=== PATIENT | male | born 1955 | race Caucasian/White ===

== ENCOUNTER 2019-06-13 15:08 | Emergency (ER) | payer MEDICAID, SELFPAY ==
[2019-06-13 15:09] VITALS: BP 204/126; PULSE 100; RESP 16; TEMP 36.7; O2SAT 96; BMI 24.4
--- NOTE | 2019-06-13 16:01 | EKG12_ITS ---
Test Reason : ABNL PAIN Blood Pressure : / mmHG Vent. Rate : 071 BPM Atrial Rate : 071 BPM P-R Int : 156 ms QRS Dur : 092 ms QT Int : 390 ms P-R-T Axes : 072 -41 032 degrees QTc Int : 423 ms Normal sinus rhythm Left axis deviation Abnormal ECG Confirmed by CHAYA AGUILAR, AVELINO ([id number]), purchasing expeditor SUDHA FERNANDEZ ([id number]) on 06/16/2019 10:55:37 AM Referred By: MARIAH Confirmed By:NURA LARKIN MD
--- NOTE | 2019-06-13 16:02 | ED.DCSUM_ITS ---
- ER Visit Summary Date of Service: 06/13/19 Chief Complaint: Abdominal pain, vision loss History of Present Illness: The patient is a 63 M who complains of upper abdominal pain and progressive vision loss over the past couple of months. His pain is in the upper part of his abdomen and radiates up into his chest. He has not had a fever. No nausea vomiting or diarrhea. He has been trying ibuprofen and CBD oil which does help with his pain. He states that his vision loss is been progressive over the past several months. It is in both eyes. He denies any pain with this. He believes it may be from diabetes. He has had a follow- up appointment scheduled with [facility] and his primary care doctor this month Physical Examination: Vital signs reviewed. HEENT exam unremarkable. Heart is regular rate and rhythm without murmurs. Lungs are clear to auscultation. Ab domen is soft with mild epigastric tenderness. No guarding or rebound tenderness. Extremities reveal no edema. Peripheral pulses are equal. Skin exam normal. Neurologic exam normal. Test Results: EKG was sinus rhythm with no ischemic changes. Laboratory studies normal except for sodium of 132 and glucose of 414 Emergency Department Course and Treatment: Patient states that he took himself off of all of his medications. This would explain his hyperglycemia and hypertension. He is not sure what diabetes medications he was taking. I will start him on metformin for his diabetes. I will give him Toradol for his pain. He does have follow-up appointments with ophthalmology and a primary care physician. They can reevaluate his blood sugar and his vision at that time. Treatment Plan: [] Disposition: Discharge Impression: Hyperglycemia, abdominal pain This note was generated with [employer] dictation software. It may contain incorrect words, spelling, and punctuation that were not noted in review of the chart prior to signing ED Disposition - Plan for ED Patient: Referrals: Damari Mendenhall NP-C [Primary Care Provider] -
[2019-06-13 16:38] VITALS: BP 207/119; PULSE 71; RESP 17; O2SAT 97
[2019-06-13 16:51] LABS: Absolute Lymphocyte Count 2.07 X10^3/uL (0.83-4.51); Absolute Neutrophil Count 4.3 X10^3/uL (2.0-7.7); Basophil# 0.09 X10^3/uL; Basophil% 1.2 % (0-1); Hematocrit 45.2 % (40-54); Hemoglobin 15.9 g/dL (13.0-16.5); Lymphocyte # 2.07 X10^3/ul (4.0); Lymphocyte % 27.8 % (19-41); Mean Corp Hgb Conc 35.2 g/dL (32-36); Mean Corpuscular Hgb 30.2 pg (27.0-32.0); Mean Corpuscular Volume 85.9 fL (80-94); Mean Platelet Vol. 10.9 fl (6.2-12.0); Monocyte# 0.64 X10^3/uL; Monocyte% 8.6 % (0-10); NRBC Flagged by Analyzer 0 % (0-5); Neutrophil # 4.32 X10^3/uL (2.7-7.7); Platelet Count 244 K/mm3 (150-450); RBC Distribution Width CV 11.8 % (11.6-14.6); RBC Distribution Width SD 36.4 fl (35.1-43.9); Red Blood Count 5.26 M/mm3 (4.6-6.2); White Blood Count 7.5 K/mm3 (4.4-11.0)
[2019-06-13 17:09] LABS: AST(SGOT) 7 U/L (15-37); Alanine Aminotransfer ALT/SGPT 21 U/L (16-61); Alkaline Phosphatase 67 U/L (45-117); Bilirubin, Direct 0.22 mg/dL (0.00-0.30); Globulin 3.4 g/dL (2.2-4.2); Protein, Total 7.4 g/dL (6.4-8.2)
[2019-06-13 17:17] LABS: Anion Gap 6 (5-15); BUN 11 mg/dL (7-18); BUN/Creat Ratio 12.4 RATIO (10-20); Calcium,Total 9.2 mg/dL (8.5-10.1); Chloride 99 mmol/L (98-107); Creatinine, Serum 0.89 mg/dL (0.70-1.30); EST Glomerular Filtration Rate 92 mL/min (>60); Est Glom Filt Rate - Afr Amer 111 mL/min (>60); Estimated Creatinine Clearance 83.85 ml/min; Glucose 414 mg/dL (74-106); Lipase 58 U/L (73-393); Potassium 4.1 mmol/L (3.5-5.1); Sodium Level 132 mmol/L (136-145)
--- NOTE | 2019-06-13 17:32 | ED.DEP ---
ED Disposition - Plan for ED Patient: Disposition: Home or Assisted Living Instructions: HYPERGLYCEMIA, NEW ONSET (Diabetes Suspected) Prescriptions: Metformin HCl [Metformin HCl ER] 500 mg PO BID #60 tab.er.24h Transmission Status: Pending to [id number] Referrals: Damari Mendenhall, PEST CONTROL SERVICE TECHNICIAN-C [Primary Care Provider] - Additional Instructions: Your prescription was electronically transmitted to the [facility] in [place]
[2019-06-13] MEDS: metFORMIN HCl 500 MG Tablet PO (17:51)
[2019-06-13] MEDS: Ketorolac 30 MG/ML Syringe IV (17:51)
[2019-06-13 18:06] VITALS: BP 195/117; PULSE 76; RESP 17; O2SAT 96
== END 2019-06-13 18:09 | disposition home or self-care (01) ==
PROVIDERS: Emergency Provider Emergency Medicine; PCP Nurse Practitioner Family
DX: E11.65 Type 2 diabetes mellitus with hyperglycemia (principal); R10.10 Upper abdominal pain, unspecified
CPT/HCPCS: 80048; 80076; 83690; 84484; 85025; 93005; 96374; 99284

== ENCOUNTER → 2024-12-04 | Outpatient (CLI) | payer MEDICARE, SELFPAY ==
--- NOTE | 2024-12-04 12:08 | MRI_ITS ---
PROCEDURE: MRI ABD WITH AND W/O CONTRAST 12/04/2024 REASON FOR EXAM: LIVER CYST Diabetes, cholecystectomy TECHNIQUE: MRI ABD WITH AND W/O CONTRAST Multiplanar and multisequence images were obtained. CONTRAST: Clariscan VOLUME: 17 mL COMPARISON: None at this facility. FINDINGS: Liver: The liver is non cirrhotic and there is no mass seen. In particular, no cyst is identified at this time. No evidence of diffuse iron or fat deposition. Biliary: Gallbladder is surgically absent. No biliary duct dilation is present. Pancreas: The pancreatic head and uncinate process appear normal. Beginning at the level of the pancreatic neck and extending into the distal tail there is glandular atrophy and ductal dilation. Some artifact is seen immediately anterior to the pancreatic head related to redundant portions of the overlying distal stomach. No definite mass is seen. However, a mass can not be excluded. Spleen: Normal Adrenals: Normal Kidneys: Normal. No collecting system dilation or solid mass seen. Peritoneum / Retroperitoneum: No free air, free fluid or other mass. Some paramagnetic effect is seen adjacent to the gastric fundus. Another focus of artifact is seen near the vicinity of the 3rd duodenum and anterior to the aorta. Lymph Nodes: None appear enlarged. Major Vessels: Normal caliber Bones: Unremarkable MRI/MRI Abd WITH and W/O Contrast IMPRESSION: 1. Liver is unremarkable. No cyst is present. 2. Cholecystectomy. No biliary ductal dilation. 3. Atrophy of the pancreatic neck, body and tail with dilation of the duct. N o definite mass seen. Differential includes stricture versus mass. Recommend comparison to outside imaging if available. Otherwise endoscopic ultrasound to evaluate this region would be suggested. Additionally, correlate with laboratory values. Reading Location: [id number]
== END | disposition home or self-care (01) ==
PROVIDERS: PCP Nurse Practitioner Family; Referring Provider Student in an Organized Health Care Education/Training Program; Visit Provider Student in an Organized Health Care Education/Training Program
DX: K76.89 Other specified diseases of liver (principal)
CPT/HCPCS: 74183; A9575; A4216

== ENCOUNTER 2024-12-16 13:05 | Day surgery (SDC) | payer MEDICARE, MEDICAID, SELFPAY ==
[2024-12-16] VITALS (8 sets, daily range): BP systolic 122–156; BP diastolic 75–116; PULSE 68–77; RESP 16–18; TEMP 36.1–36.6; O2SAT 98–100; BMI 28.0
--- NOTE | 2024-12-16 13:32 | PCM.HP.STD ---
HPI - General General Date of Admission: 12/16/24 Date of Service: 12/16/24 Chief Complaint: Abnormal imaging HPI Narrative MADI COON, is a 69 M who presents for evaluation of abdominal pain and abnormal CT scan abdomen pelvis. Referred to [facility] from PCP for findings on CT abd/pelvis. Pt endorses 1-2 days of severe nausea and vomiting which resolved without intervention. He believes he likely had a viral illness. He has a PMHx of choledocholithiasis, cholecystitis s/p cholecystectomy and chronic pancreatitis. Pt denies any current GI symptoms including constipation, diarrhea, abd pain, n/v or heartburn. He has never had an EGD but does note having a colonoscopy about 5 years ago. He endorses a hx of alcohol use in the past but has not drank on a regular basis in a few years. CT abd/pelvis; mildly distended fluid filled stomach. mucosal thickening at the gastric antrum and duodenum suggestive of gastritis/duodenitis. Underfilling vs mucosal thickening of the colon. liver with 1.9 centimeter hypoattenuating focus at the periphery of the right hepatic lobe of questionable etiology. [facility] Medical History Wears glasses Heartburn Gastric reflux Non-smoker Home Medications ?Medication ?Instructions ?Recorded ?Last Taken ?Type empagliflozin 25 mg tablet 25 mg PO QDAY 10/30/24 Unknown History (Jardiance) glimepiride 4 mg tablet 8 mg PO QAM 10/30/24 Unknown History lisinopril 10 mg tablet 10 mg PO QDAY blood pressure 10/30/24 Unknown History metoprolol succinate 25 mg 25 mg PO QDAY 10/30/24 Unknown History tablet,extended release 24 hr pantoprazole 20 mg tablet,delayed 20 mg PO QDAY 10/30/24 Unknown History release acetaminophen 500 mg capsule 500 mg PO TID 12/11/24 Unknown History aspirin 81 mg tablet 81 mg PO DAILY 12/11/24 Unknown History pioglitazone 15 mg tablet 15 mg PO DAILY 12/11/24 Unknown History Allergy/AdvReac Type Severity Reaction Status Date / Time Environmental Allergies: Allergy Intermediate SNEEZING Verified 12/16/24 13:23 Uncoded (hayfever) Surgical History Hx of cataract surgery Hx of cholecystectomy Hx of colonoscopy Social History Smoking Status: Never smoker ROS Constitutional Constitutional: Denies fatigue, fever(s), poor appetite, weight gain or weight loss Gastrointestinal Gastrointestinal: Denies belching, bloating, change in bowel habits, change in stool character, chewing difficulty, coffee ground emesis, constipation, cramping, diarrhea, dyspepsia, dysphagia, early satiety, excessive flatus, fecal incontinence, heartburn, hematemesis, hematochezia, hemorrhoids, loose stools, melena, nausea, odynophagia, rectal bleeding, tenesmus, vomiting or weight changes Physical Exam Const alert, oriented x3, no apparent distress and healthy appearing General Appearance: cooperative GI normal to inspection, nondistended, normoactive bowel sounds, soft to palpation, non-tender and non-distended Percussion: normal to percussion Rectal Exam: deferred Assessment & Plan Assessment/Plan (1) Gastric wall thickening: (2) Chronic pancreatitis: PLAN: Assessment and Plan Assessment and Plan (1) Liver cyst: Status: Acute Plan: Madi is a 69 yo male pt here today for evaluation after referral from PCP. Pt had a recent CT showing gastric wall thickening, liver cyst and chronic pancreatitis. He endorses recently having 1-2 days of profuse n/v which resolved without intervention. Pt has a PMHx pertinent for cholecystitis and choledocholithiasis s/p cholecystectomy and chronic pancreatitis. He denies all GI symptoms today and only complaints of his sciatica. He will undergo MRI to ensure his liver cyst is not malignant. He will also undergo EGD to assess his upper GI tract for inflammation. He declines colonposcy at this time. -EGD -MRI -f/u after procedure (2) Chronic pancreatitis: Status: Chronic (3) Gastric wall thickening: Status: Acute Orders: Orders MRI Abd WITH and W/O Contrast Today K76.89 - Other specified diseases of liver Medications: Discontinued metformin ER Discontinued Reason: Pt no longer taking 500 mg PO BID #[id number]
[2024-12-16] MEDS: Lactated Ringers 1,000 ML 15 ML IV (13:34)
--- NOTE | 2024-12-16 13:49 | PCM.PRE.AN2 ---
ASA Classification* ASA Classification ASA Classification: 2 Assessment & Plan Anesthesia* Anesthesia Assessment Anesthesia Assessment: Discussed sedation and/or anesthesia options, risks, benefits, and alternatives with patient/parents/legal guardian/POA. Questions invited. The patient/parents/legal guardian/POA seems to understand and agrees to proceed with anesthesia plan. Reviewed the physical assessment, medical history, allergy history and patient home medications list prior to surgery/procedure/anesthetic and documented any changes. Performed airway and anesthesia risk assessments. Anesthesia Type Anesthesia Type: MAC History Source History Obtained from:: Patient and Chart Anesthesia Focused Assessment* Temperature: 97.2 F Pulse Rate: 77 Blood Pressure: 156/84 Respiratory Rate: 16 Pulse Ox: 99 Oxygen Delivery Method: Room Air Airway Assessment Mouth opens: >3 cm Mallampati Score: II Teeth Condition: Chipped/Broken (Patient has couple more broken teeth. Rest of the teeth are tight.) and Missing (Patient has several missing teeth.) Neck Range of motion (ROM): Full ROM Comment: Patient has full vail. Labs Anesthesia Preop lab: CBC WBC 7.5 K/mm3 (4.4-11.0) 06/13/19 16:35 06/13/19 RBC 5.26 M/mm3 (4.6-6.2) 06/13/19 16:35 06/13/19 Hgb 15.9 g/dL (13.0-16.5) 06/13/19 16:35 06/13/19 Hct 45.2 % (40-54) 06/13/19 16:35 06/13/19 Plt Count 244 K/mm3 (150-450) 06/13/19 16:35 06/13/19 CHEMISTRY Potassium 4.1 mmol/L (3.5-5.1) 06/13/19 16:35 06/13/19 Sodium 132 mmol/L (136-145) L 06/13/19 16:35 06/13/19 BUN 11 mg/dL (7-18) 06/13/19 16:35 06/13/19 Creatinine 0.89 mg/dL (0.70-1.30) 06/13/19 16:35 06/13/19 Glucose 414 mg/dL (74-106) H 06/13/19 16:35 06/13/19 COAG PT 14.7 SECONDS (11.7-14.9) 02/12/17 19:00 02/12/17 Pre-Assessment Diagnosis/Proposed Procedure Planned Operative Procedure(s): EGD Anesthesia History Anesthesia History - clinical veterinarian: Anesthesia History - clinical veterinarian Hx Hospitalization No 12/11/24 15:58 Any Problems With Anesthesia No 12/11/24 15:58 Cholinesterase deficiency No 12/11/24 15:58 You/Your Family Experience No 12/11/24 15:58 fever (hyperthermia) with Relationship Recent Exposure to Contagious No 12/16/24 13:24 Disease Does patient have nerve No 12/11/24 15:58 stimulator Patient instructed to have device shut off --Does patient have Pacemaker No 12/16/24 13:24 or ICD? When Was Last Pacemaker Check QUESTION #4 FULL TEXT: You/Your Family Experience fever (hyperthermia) with Anesthesia Last Oral Intake Last Oral intake: Last Oral Intake NPO since 22:30 12/16/24 13:24 Meds taken in AM with sips of No 12/16/24 13:24 water? Meds patient instructed to take am of surgery Any additional information?: Yes NPO since: 09:00 (Patient had green tea at 9 AM.) Meds taken in AM with sips of water?: No PONV PONV - clinical veterinarian: PONV - clinical veterinarian Female No 12/11/24 15:58 HX of Motion Sickness No 12/11/24 15:58 HX of N/V After Surgery No 12/11/24 15:58 Non-Smoker Yes 12/11/24 15:58 Duration of Surgery greater No 12/11/24 15:58 than 60 minutes Number of Risk Factors 1 12/11/24 15:58 PONV Score Low Risk 12/11/24 15:58 Height & Weight Height & Weight: Anesthesia: Height & Weight Height 5 ft 9 in 12/16/24 13:24 Weight: 86 kg 12/16/24 13:24 Body Mass Index (BMI) 28.0 12/16/24 13:24 Respiratory Assessment Respiratory Assessment - clinical veterinarian: Respiratory Tract Infection Hx - clinical veterinarian Hx Respiratory Tract Infection No 12/11/24 15:58 STOP Sleep Apnea STOP Sleep Apnea - clinical veterinarian: STOP Sleep Apnea - clinical veterinarian Hx Hypertension Yes: ON MEDS 12/11/24 15:58 Hx Sleep Apnea No 12/11/24 15:58 CPAP BIPAP Do you snore loudly (louder No 12/11/24 15:58 than talking or can be heard Do you often feel tired/ No 12/11/24 15:58 fatigued/ sleepy during daytime? Has anyone observed you stop No 12/11/24 15:58 breathing during sleep? STOP Results Negative 12/11/24 15:58 QUESTION #5 FULL TEXT : Do you snore loudly (louder than talking or can be heard through closed doors)? Tobacco Use History Tobacco Use History - clinical veterinarian: Tobacco Use History - clinical veterinarian Tobacco Use Smoking Status Never smoker 12/11/24 15:58 Hx Tobacco Use No 12/11/24 15:58 Years Smoking Packs Smoked per Day Smoking Cessation Date was within the last 15 years Hx Smoking Cessation Date Hx Smoking Cessation Counseling Any additional information?: Yes Tobacco Use: Chew (Patient chews tobacco. Last time was about 9:30 AM. Will wait 6 hours prior to procedure.) Hematologic Medial History Hematologic Hx - clinical veterinarian: Hematologic Medical Hx - rn documentation Hx of Blood Transfusion No 12/11/24 15:58 Hx of Transfusion in last 3 No 12/11/24 15:58 Months Date of Last Transfusion (if within last 3 months) Ever experience any problems No 12/11/24 15:58 with transfusion(s)? Specify any problems Hx of Preganancy in last 3 N/A 12/11/24 15:58 Months Nurse Filling Out Transfusion MATHIEU 12/11/24 15:58 & Questions: Date: 12/11/24 12/11/24 15:58 Time: 15:59 12/11/24 15:58 Patient unable to answer at this time (ie. confused, unrespo /Reproduction History /Reproductive History - clinical veterinarian: /Reproductive Hx- clinical veterinarian Hx Now No 12/11/24 15:58 Gestational Age (in weeks): EDC: Hx Hx Para Hx Section SAB No 12/11/24 15:58 Active Medications Active Medications: Current Medications Generic Name Dose Route Start Last Admin Trade Name Freq PRN Reason Stop Dose Admin Lactated Ringer's 1,000 mls @ 15 mls/hr 12/16/24 13:15 12/16/24 13:34 IV 15 mls/hr .Q48H STEPHEN Administration PFSH Medical History Wears glasses Heartburn Gastric reflux Non-smoker Home Medications ?Medication ?Instructions ?Recorded ?Last Taken ?Type empagliflozin 25 mg tablet 25 mg PO QDAY 10/30/24 Unknown History (Jardiance) glimepiride 4 mg tablet 8 mg PO QAM 10/30/24 Unknown History lisinopril 10 mg tablet 10 mg PO QDAY blood pressure 10/30/24 Unknown History metoprolol succinate 25 mg 25 mg PO QDAY 10/30/24 Unknown History tablet,extended release 24 hr pantoprazole 20 mg tablet,delayed 20 mg PO QDAY 10/30/24 Unknown History release acetaminophen 500 mg capsule 500 mg PO TID 12/11/24 Unknown History aspirin 81 mg tablet 81 mg PO DAILY 12/11/24 Unknown History pioglitazone 15 mg tablet 15 mg PO DAILY 12/11/24 Unknown History Allergy/AdvReac Type Severity Reaction Status Date / Time Environmental Allergies: Allergy Intermediate SNEEZING Verified 12/16/24 13:23 Uncoded (hayfever) Surgical History Hx of cataract surgery Hx of cholecystectomy Hx of colonoscopy Social History Smoking Status: Never smoker Review of Systems (Anesthesia) ROS Narrative System reviewed and no additional complaints, except as documented.
--- NOTE | 2024-12-16 14:00 | EGD_PTH ---
PATIENT: ADELA COON LOC: EN U#:[id number] AGE/SX: 69/M ROOM: RE12/16/[address]: Dr. Domingo Woods DO : 1955 BED: DIS: 12/16/2024 SPEC #: [id number] RECD: 12/17/24 07:34 STATUS: JERMAIN REQ #: [id number] AYAN: 12/16/24 14:[address]: Domingo Woods DEPT: SURGICAL PATHOLOGY RECD BY: Castro Junior ENTERED: 12/17/24 10:59 SP TYPE: EGD BIOPSY OT DR: Damari Mendenhall, BUSINESS OBJECTS REPORT DEVELOPER-C Tissues: A - Esophagus, NOS B - Gastric mucous membrane Procedures: Immunohistochemical Stains Surgery Specimen Level IV HEADER OPERATION: EGD, biopsy PRE-OP DIAGNOSIS: Gastric wall thickening, chronic pancreatitis TISSUE SUBMITTED: A- Distal esophagus biopsy, B- Gastric body biopsy MICROSCOPIC DIAGNOSIS A. Distal esophagus, biopsy: - Squamocolumnar mucosa with reactive changes, negative for goblet cell metaplasia. B. Gastric body, biopsy: - Oxyntic mucosa with mild chronic inflammation. - IHC negative for H. pylori organisms. MICROSCOPIC DESCRIPTION Slides are reviewed. All matched controls reacted appropriately. These tests were developed and their performance characteristics determined by [facility]. They may not have been cleared or approved by the U.S. Food and Drug Administration. The FDA has determined that such clearance or approval is not necessary. The above immunohistochemical/dualISH markers are reviewed by the Pathologist. GROSS DESCRIPTION A. Received in fixative is one container labeled with the patient's name and designated Distal esophagus biopsy. The specimen consists of one irregular fragment of light ivey soft tissue that measures 0.5 cm. The specimen is totally submitted in one cassette. B. Received in fixative is one container labeled with the patient's name and designated Gastric body biopsy. The specimen consists of three irregular fragments of light ivey soft tissue that measure 0.2 to 0.4 cm. The specimen is totally submitted in one cassette. [place] 12/17/2024 CPT:77686u8,86132
--- NOTE | 2024-12-16 15:42 | PCM.POST.ANE ---
Anesthesia: Postop Eval I Current Vital Signs Temperature: 97 F Pulse Rate: 73 Blood Pressure: 141/79 Respiratory Rate: 16 Pulse Ox: 98 Oxygen Delivery Method: Room Air Assessment Airway patent: Yes Spontaneous unlabored respirations: Yes Mental status: Awake and Calm nausea: No Vomiting: No Anesthesia Complication: No Fluid Hydration Crystalloid volume administer (ml): 200 Total IV fluid infused: 200 Progress Note Anesthesia document: Postop Eval 1 completed: Yes
--- NOTE | 2024-12-16 15:47 | OP.EGD_ITS ---
Patient Name: Madi Avitia Procedure Date: 12/16/2024 1:55 PM Date of : 1955 Age: 69 Procedure: Upper GI endoscopy Indications: Epigastric abdominal pain Providers: Domingo Woods DO Referring MD: Saumya Hoang Medicines: Monitored Anesthesia Care Patient Profile: This is a 69 year old male. Refer to note in patient chart for documentation of history and physical. Patient has symptoms of acute abdominal cramping, chronic abdominal distention, chronic epigastric abdominal pain, chronic dyspepsia and chronic nausea. Complications: No immediate complications. Procedure: Pre-Anesthesia Assessment: - Prior to the procedure, a History and Physical was performed, and patient medications and allergies were reviewed. The patient is competent. The risks and benefits of the procedure and the sedation options and risks were discussed with the patient. All questions were answered and informed consent was obtained. Patient identification and proposed procedure were verified by the physician in the pre-procedure area. Mental Status Examination: alert and oriented. Airway Examination: normal oropharyngeal airway and neck mobility. Respiratory Examination: clear to auscultation. CV Examination: normal. ASA Grade Assessment: II - A patient with mild systemic disease. After reviewing the risks and benefits, the patient was deemed in satisfactory condition to undergo the procedure. The anesthesia plan was to use monitored anesthesia care (MAC). Immediately prior to administration of medications, the patient was re-assessed for adequacy to receive sedatives. The heart rate, respiratory rate, oxygen saturations, blood pressure, adequacy of pulmonary ventilation, and response to care were monitored throughout the procedure. The physical status of the patient was re-assessed after the procedure. After obtaining informed consent, the endoscope was passed under direct vision. Throughout the procedure, the patient's blood pressure, pulse, and oxygen saturations were monitored continuously. The Endoscope was introduced through the mouth, and advanced to the fourth part of the duodenum. Small bowel enteroscopy was deemed necessary. The upper GI endoscopy was accomplished without difficulty. Scope In: 3:29:34 PM Scope Out: 3:32:59 PM Total Procedure Duration Time 0 hours 3 minutes 25 seconds Findings: The examined esophagus was normal. The Z-line was irregular and was found 39 cm from the incisors. Biopsies were taken with a cold forceps for histology. Verification of patient identification for the specimen was done. Estimated blood loss was minimal. A few dispersed 5 mm erosions with no stigmata of recent bleeding were found in the gastric body. Biopsies were taken with a cold forceps for histology. Verification of patient identification for the specimen was done. Biopsies were taken with a cold forceps for Helicobacter pylori testing. Verification of patient identification for the specimen was done. Estimated blood loss was minimal. No gross lesions were noted in the entire examined duodenum. Impression: - Normal esophagus. - Z-line irregular, 39 cm from the incisors. Biopsied. - Erosive gastropathy with no stigmata of recent bleeding. Biopsied. - No gross lesions in the entire examined duodenum. Recommendation: - Discharge patient to home. - Resume previous diet. - Continue present medications. - Await pathology results. Procedure Code(s): --- Professional --- 07184, Small intestinal endoscopy, enteroscopy beyond second portion of duodenum, not including ileum; with biopsy, single or multiple CPT copyright 2021 [employer]. All rights reserved. The codes documented in this report are preliminary and upon certified procedural coder review may be revised to meet current compliance requirements. Domingo Woods DO 12/16/2024 3:46:50 PM This report has been signed electronically. Number of Addenda: 0 Note Initiated On: 12/16/2024 1:55 PM
--- NOTE | 2024-12-16 15:47 | OP.PROVAT_ITS ---
12/16/2024 Saumya Hoang Re : Upper GI endoscopy procedure for Madi Avitia Dear Za This procedure was performed on Monday, December 16, 2024. My impressions and recommendations are as follows: Impressions : - Normal esophagus. - Z-line irregular, 39 cm from the incisors. Biopsied. - Erosive gastropathy with no stigmata of recent bleeding. Biopsied. - No gross lesions in the entire examined duodenum. Recommendations : - Discharge patient to home. - Resume previous diet. - Continue present medications. - Await pathology results. My findings are described in the full procedure note, which is enclosed. If I can be of further assistance, please feel free to contact me at . Sincerely, Domingo Woods, 12/16/2024 3:46:50 PM This report has been signed electronically.
== END 2024-12-16 16:41 | disposition home or self-care (01) ==
LOC: EN 13:06 → AC 13:08
PROVIDERS: PCP Nurse Practitioner Family; Referring Provider Nurse Practitioner Family; Visit Provider Internal Medicine Gastroenterology
PROC: 0DJ08ZZ Inspection of Upper Intestinal Tract, Via Natural or Artificial Opening Endoscopic (ICD-10-PCS; CPT 43235; principal; 2024-12-16 13:55)
DX: K29.50 Unspecified chronic gastritis without bleeding (principal); K86.1 Other chronic pancreatitis; Z79.82 Long term (current) use of aspirin; K76.89 Other specified diseases of liver; K21.9 Gastro-esophageal reflux disease without esophagitis; K25.9 Gastric ulcer, unspecified as acute or chronic, without hemorrhage or perforation; K31.89 Other diseases of stomach and duodenum
CPT/HCPCS: 44361; 82962; 88305; 88342; J2405